=== PATIENT | male | born 1960 | race Caucasian/White ===

== ENCOUNTER 2024-12-04 23:20 | Emergency (ER) | payer SELFPAY ==
[~2024-12-04] VITALS: Ht 175.3 cm; Wt 68.0 kg
[2024-12-04 23:30] VITALS: TEMP 97.5
[2024-12-05 00:24] LABS: APPEARANCE,URINE CLEAR (CLEAR); BILIRUBIN,URINE NEGATIVE (NEGATIVE); BLOOD, URINE NEGATIVE Ery/uL (NEGATIVE); COLOR,URINE YELLOW (YELLOW); KETONES,URINE TRACE mg/dL (NEGATIVE); LEUKOCYTE ESTERASE ,URINE NEGATIVE (NEGATIVE); NITRITE, URINE NEGATIVE (NEGATIVE); PH,URINE 5.5 (5.0-8.0); PROTEIN,URINE NEGATIVE (NEGATIVE); UGLUCOSE NEGATIVE (NEGATIVE); UROBILINOGEN,URINE 0.2 EU/dL (0.2)
[2024-12-05 00:44] LABS: RBC,URINE 0-2 /HPF (0-2)
[2024-12-05 00:46] LABS: SQUAMOUS EPITHELIAL CELL,UR Few /HPF (None Seen)
[2024-12-05 00:47] LABS: BASOPHILS % (AUTO) 0.6 % (0.0-2.0); EOSINOPHILS # (AUTO) 0.2 K/uL (0.0-0.7); EOSINOPHILS % (AUTO) 2.2 % (0.0-6.0); HEMATOCRIT 40 % (39-51); HEMOGLOBIN 13.3 g/dL (13.5-17.5); LYMPHOCYTES # (AUTO) 1.3 K/uL (0.8-4.8); LYMPHOCYTES % (AUTO) 15.7 % (20.0-44.0); MEAN CORPUSCULAR HEMOGLOBIN 34 PG (26.0-33.0); MEAN CORPUSCULAR HGB CONC 33 g/dl (31.0-36.0); MEAN CORPUSCULAR VOLUME 101 fL (80-96); MONOCYTES % (AUTO) 12.5 % (2.0-12.0); NEUTROPHILS # (AUTO) 5.6 K/uL (1.8-8.9); PLATELET COUNT (AUTO) 430 K/uL (150-450); RED BLOOD CELL COUNT(AUTO) 3.98 MIL/uL (4.5-6.0); RED CELL DISTRIBUTION WIDTH 14.6 % (11.5-15.0); WHITE BLOOD COUNT (AUTO) 8.1 K/uL (4.3-11.0)
[2024-12-05 00:48] LABS: ADD URINE CULTURE NO; BACTERIA,URINE Few /HPF (None Seen)
[2024-12-05 00:57] LABS: ALBUMIN 3.7 g/dL (3.4-5.0); BILIRUBIN,DIRECT 0.2 mg/dL (0.0-0.2); BILIRUBIN,TOTAL 0.5 mg/dL (0.2-1.0); CALCIUM, SERUM 8.9 mg/dL (8.5-10.1); CREATININE 0.7 mg/dL (0.6-1.3); POTASSIUM 3.4 mmol/L (3.5-5.1)
[2024-12-05] MEDS ORDERED: IV NS 0.9% 1,000 ML BAG IV ONE (01:30)
[2024-12-05 01:47] VITALS: BP 147/88; O2SAT 98
[2024-12-06] MEDS ORDERED: ALPR1TAB7 PO (15:19)
[2024-12-06] MEDS ORDERED: LISI20TA30 PO (15:19)
[2024-12-06] MEDS ORDERED: AMLO-212 PO (15:19)
[2024-12-06] MEDS ORDERED: ATOR40TA PO (15:19)
[2024-12-06] MEDS ORDERED: ESCI5TAB PO (15:19)
[2024-12-06] MEDS ORDERED: CIPR500T5 PO (15:19)
[2024-12-06] MEDS ORDERED: BUPR-319 PO (15:19)
[2024-12-06] MEDS ORDERED: BACL10TA PO (15:19)
[2024-12-06] MEDS ORDERED: TRAM50TA2 PO (15:19)
[2024-12-06] MEDS ORDERED: QULIPTA PO (15:19)
[2024-12-06] MEDS ORDERED: BUTA1CAP43 PO (15:19)
[2024-12-06] MEDS ORDERED: OXYB5TAB16 PO (15:19)
[2024-12-06] MEDS ORDERED: PROP160C2 PO (15:19)
== END 2024-12-05 01:48 | disposition left against medical advice (07) ==
LOC: ER 23:25
DX: R10.2 Pelvic and perineal pain (principal); R30.0 Dysuria; I10 Essential (primary) hypertension; Z87.11 Personal history of peptic ulcer disease
CPT/HCPCS: 36415; 80048-TC; 80076-TC; 81001; 83690-TC; 85025-TC

== ENCOUNTER 2024-12-05 21:28 | Emergency (ER) | payer OTHER, MEDICAID ==
[~2024-12-05] VITALS: Ht 175.3 cm; Wt 70.3 kg
[2024-12-05 23:02] VITALS: BP 132/101; TEMP 97.6; O2SAT 99
[2024-12-06] MEDS ORDERED: QULIPTA PO (15:19)
[2024-12-06] MEDS ORDERED: TRAM50TA2 PO (15:19)
[2024-12-06] MEDS ORDERED: LISI20TA30 PO (15:19)
[2024-12-06] MEDS ORDERED: CIPR500T5 PO (15:19)
[2024-12-06] MEDS ORDERED: ATOR40TA PO (15:19)
[2024-12-06] MEDS ORDERED: BACL10TA PO (15:19)
[2024-12-06] MEDS ORDERED: AMLO-212 PO (15:19)
[2024-12-06] MEDS ORDERED: ALPR1TAB7 PO (15:19)
[2024-12-06] MEDS ORDERED: ESCI5TAB PO (15:19)
[2024-12-06] MEDS ORDERED: PROP160C2 PO (15:19)
[2024-12-06] MEDS ORDERED: BUPR-319 PO (15:19)
[2024-12-06] MEDS ORDERED: BUTA1CAP43 PO (15:19)
[2024-12-06] MEDS ORDERED: OXYB5TAB16 PO (15:19)
== END 2024-12-05 23:08 | disposition home or self-care (01) ==
LOC: EDUNIT# 21:28 → ER 21:34
DX: R10.9 Unspecified abdominal pain (principal); R35.0 Frequency of micturition; I10 Essential (primary) hypertension; Z87.11 Personal history of peptic ulcer disease

== ENCOUNTER 2024-12-06 08:14 | Inpatient (IN) | payer OTHER, MEDICAID ==
[~2024-12-06] VITALS: Ht 162.6 cm; Wt 62.1 kg
[2024-12-06 08:53] LABS: BASOPHILS % (AUTO) 0.4 % (0.0-2.0); EOSINOPHILS # (AUTO) 0.1 K/uL (0.0-0.7); EOSINOPHILS % (AUTO) 1.9 % (0.0-6.0); HEMATOCRIT 39 % (39-51); HEMOGLOBIN 13.2 g/dL (13.5-17.5); LYMPHOCYTES # (AUTO) 1.1 K/uL (0.8-4.8); LYMPHOCYTES % (AUTO) 14.5 % (20.0-44.0); MEAN CORPUSCULAR HEMOGLOBIN 34 PG (26.0-33.0); MEAN CORPUSCULAR HGB CONC 34 g/dl (31.0-36.0); MEAN CORPUSCULAR VOLUME 101 fL (80-96); MONOCYTES # (AUTO) 0.8 K/uL (0.1-1.30); MONOCYTES % (AUTO) 10.7 % (2.0-12.0); NEUTROPHILS # (AUTO) 5.2 K/uL (1.8-8.9); NEUTROPHILS % (AUTO) 72.5 % (43.0-81.0); PLATELET COUNT (AUTO) 380 K/uL (150-450); RED BLOOD CELL COUNT(AUTO) 3.88 MIL/uL (4.5-6.0); RED CELL DISTRIBUTION WIDTH 14.9 % (11.5-15.0); WHITE BLOOD COUNT (AUTO) 7.2 K/uL (4.3-11.0)
[2024-12-06 09:08] VITALS: O2SAT 99
[2024-12-06 09:11] LABS: ALANINE AMINOTRANSFERASE 44 U/L (12-78); ALBUMIN 3.6 g/dL (3.4-5.0); ALKALINE PHOSPHATASE 100 U/L (46-116); ASPARTATE AMINOTRANSFERASE 45 U/L (15-37); BILIRUBIN,DIRECT 0.2 mg/dL (0.0-0.2); BILIRUBIN,TOTAL 0.9 mg/dL (0.2-1.0); CALCIUM, SERUM 8.7 mg/dL (8.5-10.1); CHLORIDE 106 mmol/L (98-107); CREATININE 0.8 mg/dL (0.6-1.3); GLUCOSE 94 mg/dL (74-106); POTASSIUM 3.2 mmol/L (3.5-5.1); SODIUM SERUM 143 mmol/L (136-145); TOTAL PROTEIN, SERUM 6.8 g/dL (6.4-8.2); UREA NITROGEN, BLOOD 19 mg/dL (7-18)
[2024-12-06 09:25] LABS: CARBON DIOXIDE 24 mmol/L (21-32)
[2024-12-06 09:34] LABS: ACETAMINOPHEN <10 ug/ml (10-30)
[2024-12-06 09:42] LABS: ALCOHOL, BLOOD < 3 mg/dL (0-10)
[2024-12-06] MEDS ORDERED: OLANZAPINE 5 MG TABLET ONE (10:58)
[2024-12-06] MEDS: OLANZAPINE 5 MG TABLET PO ONE (11:03)
[2024-12-06 11:07] LABS: APPEARANCE,URINE CLEAR (CLEAR); BILIRUBIN,URINE NEGATIVE (NEGATIVE); BLOOD, URINE TRACE-INTA Ery/uL (NEGATIVE); COLOR,URINE YELLOW (YELLOW); KETONES,URINE 1+ mg/dL (NEGATIVE); LEUKOCYTE ESTERASE ,URINE NEGATIVE (NEGATIVE); NITRITE, URINE NEGATIVE (NEGATIVE); PH,URINE 5.5 (5.0-8.0); PROTEIN,URINE NEGATIVE (NEGATIVE); UGLUCOSE NEGATIVE (NEGATIVE); UROBILINOGEN,URINE 0.2 EU/dL (0.2)
[2024-12-06 11:15] LABS: AMPHETAMINE, URINE NEGATIVE (NEGATIVE); BENZODIAZEPINE, URINE NEGATIVE (NEGATIVE); CANNABINOID, URINE NEGATIVE (NEGATIVE); COCCAINE, URINE NEGATIVE (NEGATIVE); OPIATE, URINE NEGATIVE (NEGATIVE); PHENCYCLIDINE SCREEN,URINE NEGATIVE (NEGATIVE)
[2024-12-06 11:17] LABS: BARBITURATE, URINE POSITIVE (NEGATIVE)
[2024-12-06 11:19] LABS: ADD URINE CULTURE NO; BACTERIA,URINE Rare /HPF (None Seen); RBC,URINE 0-2 /HPF (0-2); SQUAMOUS EPITHELIAL CELL,UR Few /HPF (None Seen); URINE AMORPHOUS URATE Few /HPF (None Seen); WBC,URINE 0-2 /HPF (0-3)
[2024-12-06] MEDS ORDERED: POTASSIUM CHLORIDE 20 MEQ TAB.PRT.SR PO ONE (14:50)
[2024-12-06] MEDS: POTASSIUM CHLORIDE 20 MEQ TAB.PRT.SR PO ONE (15:10)
[2024-12-06] MEDS ORDERED: QULIPTA PO (15:19)
[2024-12-06] MEDS ORDERED: ATOR40TA PO (15:19)
[2024-12-06] MEDS ORDERED: PROP160C2 PO (15:19)
[2024-12-06] MEDS ORDERED: LISI20TA30 PO (15:19)
[2024-12-06] MEDS ORDERED: BUTA1CAP43 PO (15:19)
[2024-12-06] MEDS ORDERED: BUPR-319 PO (15:19)
[2024-12-06] MEDS ORDERED: TRAM50TA2 PO (15:19)
[2024-12-06] MEDS ORDERED: AMLO-212 PO (15:19)
[2024-12-06] MEDS ORDERED: CIPR500T5 PO (15:19)
[2024-12-06] MEDS ORDERED: ESCI5TAB PO (15:19)
[2024-12-06] MEDS ORDERED: OXYB5TAB16 PO (15:19)
[2024-12-06] MEDS ORDERED: BACL10TA PO (15:19)
[2024-12-06] MEDS ORDERED: ALPR1TAB7 PO (15:19)
[2024-12-06] MEDS ORDERED: MAGNESIUM HYDROXIDE 30 ML UDC PO PRN (16:00)
[2024-12-06] MEDS ORDERED: MAG HYDROX/AL HYDROX/SIMETH 30 ML UDC PO PRN (16:00)
[2024-12-06] MEDS ORDERED: TRAMADOL HCL 50 MG TABLET PO PRN (16:30)
[2024-12-06] MEDS: AMLODIPINE BESYLATE 5 MG TABLET PO SCH (16:30)
[2024-12-06] MEDS: ATORVASTATIN 40 MG TABLET PO SCH (16:30)
[2024-12-06] MEDS: LISINOPRIL (20MG) 20 MG TABLET PO SCH (16:30)
[2024-12-06] MEDS: BLOOD SUGAR DIAGNOSTIC 1 EACH STRIP IN ONE (16:36)
[2024-12-06 16:49] VITALS: BP 121/89; TEMP 98.6
[2024-12-06] MEDS: BACLOFEN (10 MG) 10 MG TABLET PO SCH (16:52)
[2024-12-06] MEDS: OXYBUTYNIN CHLORIDE 5 MG TABLET PO SCH (16:52)
[2024-12-06 20:00] VITALS: BP 126/72; TEMP 98.6; O2SAT 100
[2024-12-06] MEDS ORDERED: LORAZEPAM 0.5 MG TABLET PO PRN (22:30)
[2024-12-06] MEDS: TEMAZEPAM 7.5 MG CAPSULE PO PRN (22:50)
[2024-12-07 07:35] LABS: CREATININE 0.6 mg/dL (0.6-1.3)
[2024-12-07 07:40] LABS: ALBUMIN 2.9 g/dL (3.4-5.0); BILIRUBIN,TOTAL 0.6 mg/dL (0.2-1.0); CALCIUM, SERUM 8.2 mg/dL (8.5-10.1); CREATININE 0.5 mg/dL (0.6-1.3); POTASSIUM 3.4 mmol/L (3.5-5.1); TOTAL PROTEIN, SERUM 5.5 g/dL (6.4-8.2)
[2024-12-07 08:00] VITALS: BP 129/73; TEMP 97.6; O2SAT 97
[2024-12-07] MEDS: POTASSIUM CHLORIDE 20 MEQ TAB.PRT.SR PO ONE (11:57)
[2024-12-07] MEDS: THIAMINE HCL 100 MG TABLET PO SCH (13:26)
[2024-12-07] MEDS: MAGNESIUM OXIDE 400 MG TABLET PO SCH (13:31)
[2024-12-07 13:41] LABS: THYROID STIMULATING HORMONE 0.42 uIU/mL (0.358-3.74)
[2024-12-07] MEDS: CYANOCOBALAMIN 1,000 MCG/ML VIAL IM SCH (15:33)
[2024-12-07 16:00] VITALS: BP 112/68; TEMP 97.5; O2SAT 96
[2024-12-07] MEDS ORDERED: OLANZAPINE 2.5 MG TABLET PO SCH (17:00)
[2024-12-07 21:08] VITALS: BP 136/67; TEMP 98.1; O2SAT 96
[2024-12-07] MEDS: OLANZAPINE 2.5 MG TABLET PO SCH (21:22)
[2024-12-07] MEDS: TEMAZEPAM 7.5 MG CAPSULE PO PRN (23:50)
[2024-12-08] MEDS: LORAZEPAM 0.5 MG TABLET PO PRN (05:37)
[2024-12-08 08:00] VITALS: BP 132/89; TEMP 97.8; O2SAT 98
[2024-12-08] MEDS: ACETAMINOPHEN 325 MG TABLET PO PRN (12:09)
[2024-12-08 16:00] VITALS: BP 108/75; TEMP 97.9; O2SAT 100
[2024-12-08 20:13] VITALS: BP 119/80; TEMP 98.6; O2SAT 100
[2024-12-09 08:00] VITALS: BP 143/84; TEMP 97.9; O2SAT 97
[2024-12-09 15:11] VITALS: BP 115/80; TEMP 97.9; O2SAT 97
[2024-12-09 20:00] VITALS: BP 115/92; TEMP 97; O2SAT 98
[2024-12-10 01:07] LABS: FOLIC ACID 8.3 ng/mL (>3.0)
[2024-12-10 08:00] VITALS: BP 125/70; TEMP 97.8; O2SAT 96
[2024-12-10 11:55] LABS: CHOLESTEROL 151 mg/dL (<200); HDL CHOLESTEROL 42 mg/dL (40-60); LDL 86 mg/dL (0-99); TRIGLYCERIDES 123 mg/dL (30-150)
[2024-12-10 16:00] VITALS: BP 114/72; TEMP 98.7; O2SAT 98
[2024-12-10 20:00] VITALS: BP 136/96; TEMP 98.6; O2SAT 99
[2024-12-10] MEDS: OLANZAPINE 5 MG TABLET PO SCH (21:13)
[2024-12-11 08:00] VITALS: BP 100/61; TEMP 97.9; O2SAT 100
[2024-12-11 16:00] VITALS: BP 127/80; TEMP 97.8; O2SAT 100
[2024-12-11 20:00] VITALS: BP 130/79; TEMP 98; O2SAT 98
[2024-12-12 08:00] VITALS: BP 122/79; TEMP 98.5; O2SAT 97
[2024-12-12] MEDS: ESCITALOPRAM OXALATE (10 MG) 10 MG TABLET PO SCH (08:58)
[2024-12-12 16:00] VITALS: BP 108/69; TEMP 97.7; O2SAT 99
[2024-12-12 17:06] LABS: VITAMIN B1 THIAMINE,WB 118.7 nmol/L (66.5-200.0)
[2024-12-12 20:00] VITALS: BP 124/74; TEMP 98.1; O2SAT 98
[2024-12-13 08:00] VITALS: BP 129/85; TEMP 97.9; O2SAT 99
[2024-12-13 08:46] VITALS: BP 129/85
== END 2024-12-13 11:35 | DRG 885 ==
LOC: ER 08:30 → GPS 15:44
PROVIDERS: ADMIT Psychiatry & Neurology Psychosomatic Medicine; ATTEND Internal Medicine
DX: F29 Unspecified psychosis not due to a substance or known physiological condition (principal); G92.8 Other toxic encephalopathy; Z59.00 Homelessness unspecified; E87.6 Hypokalemia; I10 Essential (primary) hypertension; R79.89 Other specified abnormal findings of blood chemistry; Z79.899 Other long term (current) drug therapy; Z87.11 Personal history of peptic ulcer disease; F10.10 Alcohol abuse, uncomplicated; Z20.822 Contact with and (suspected) exposure to COVID-19; Z73.6 Limitation of activities due to disability; F19.10 Other psychoactive substance abuse, uncomplicated; R26.9 Unspecified abnormalities of gait and mobility; F39 Unspecified mood [affective] disorder; F31.9 Bipolar disorder, unspecified; F18.1 Inhalant abuse
CPT/HCPCS: 36415; 70450-TC; 80048-TC; 80053-TC; 80061-TC; 80076-TC; 81001; 82140-TC; 82550-TC; 82565-TC; 82607-TC; 83735-TC; 83921; 84425; 84443-TC; 85025-TC; 97110-TC; 97116-TC; G0480; J3420